=== PATIENT | female | born 1970 | race African-American/Black ===

== ENCOUNTER 2016-11-19 01:02 | Emergency (ER) | payer MEDICAID ==
[~2016-11-19] VITALS: Ht 170.2 cm; Wt 91.0 kg
[~2016-11-19 01:02] MED LIST: LABE100T PO
[2016-11-19] MEDS ORDERED: METHOCARBAMOL 500MG TABLET PO ONE (02:30)
[2016-11-19] MEDS ORDERED: KETOROLAC 60MG/2ML VIAL IM ONE (02:30)
[2016-11-19 02:42] VITALS: BP 141/83
== END 2016-11-19 03:08 | disposition home or self-care (01) ==
LOC: ER 01:04
DX: S16.1XXA Strain of muscle, fascia and tendon at neck level, initial encounter (principal); I10 Essential (primary) hypertension; Z79.899 Other long term (current) drug therapy; F17.200 Nicotine dependence, unspecified, uncomplicated; Y93.89 Activity, other specified; Y99.9 Unspecified external cause status; Y92.89 Other specified places as the place of occurrence of the external cause
CPT/HCPCS: 96372; 99283; J1885

== ENCOUNTER 2017-03-03 21:08 | Emergency (ER) | payer MEDICAID ==
[~2017-03-03] VITALS: Ht 170.2 cm; Wt 83.4 kg
[2017-03-03 22:01] VITALS: BP 130/67
== END 2017-03-04 00:31 | disposition left against medical advice (07) ==
LOC: ER 21:08
DX: M25.512 Pain in left shoulder (principal); M54.2 Cervicalgia; Z53.21 Procedure and treatment not carried out due to patient leaving prior to being seen by health care provider

== ENCOUNTER 2017-06-17 12:47 | Emergency (ER) | payer MEDICAID ==
[~2017-06-17] VITALS: Ht 170.2 cm; Wt 86.0 kg
[2017-06-17 16:09] LABS: BASOPHILS % 0.3 % (0.0-2.0); EOSINOPHILS % 1.2 % (0.0-5.0); HEMATOCRIT. 38.8 % (36.0-48.0); LYMPHOCYTES % 30.4 % (20.0-50.0); MEAN CORPUSCULAR HEMOGLOBIN 31.4 pg (28.0-32.0); MEAN CORPUSCULAR VOLUME 93.8 fL (81.0-99.0); MEAN PLATELET VOLUME 8.3 fl (7.4-10.4); MONOCYTES % 7.3 % (2.0-8.0); NEUTROPHILS % 60.8 % (40.0-76.0); PLATELET 277 x1000/uL (130-400); RED BLOOD CELL COUNT 4.13 mill/uL (4.2-5.4); RED CELL DISTRIBUTION WIDTH 12.8 % (11.6-14.6)
[2017-06-17 16:17] LABS: CHLORIDE 106 mEq/L (98-107)
[2017-06-17 16:22] LABS: CARBON DIOXIDE 26 mEq/L (21-32)
[2017-06-17] MEDS ORDERED: IBUPROFEN 600MG TABLET PO ONE (17:30)
[2017-06-17 17:53] VITALS: BP 108/72
== END 2017-06-17 17:54 | disposition home or self-care (01) ==
LOC: ER 12:55
DX: M79.602 Pain in left arm (principal); I10 Essential (primary) hypertension; F31.9 Bipolar disorder, unspecified; F17.200 Nicotine dependence, unspecified, uncomplicated; Z90.49 Acquired absence of other specified parts of digestive tract
CPT/HCPCS: 36415; 73060; 80048; 80076; 81025; 83690; 85025; 99285

== ENCOUNTER 2020-12-27 14:08 | Emergency (ER) | payer MEDICAID, OTHER ==
[~2020-12-27] VITALS: Ht 165.1 cm; Wt 75.0 kg
[~2020-12-27 14:08] MED LIST changes: -LABE100T PO; +LABE100T5 PO
[2020-12-27 14:13] VITALS: BP 157/106
[2020-12-27] MEDS ORDERED: LORAZEPAM 0.5MG TABLET PO ONE (15:00)
== END 2020-12-27 15:27 | disposition left against medical advice (07) ==
LOC: ER 14:08
DX: S20.219A Contusion of unspecified front wall of thorax, initial encounter (principal); Y04.2XXA Assault by strike against or bumped into by another person, initial encounter; F41.1 Generalized anxiety disorder; R00.0 Tachycardia, unspecified; Y07.499 Other family member, perpetrator of maltreatment and neglect; Y93.89 Activity, other specified; Y92.89 Other specified places as the place of occurrence of the external cause; Z63.79 Other stressful life events affecting family and household
CPT/HCPCS: 93005; 99283

== ENCOUNTER 2021-08-16 09:54 | Inpatient (IN) | payer MEDICAID ==
[~2021-08-16] VITALS: Ht 170.2 cm; Wt 76.7 kg
[2021-08-16] MEDS ORDERED: ONDANSETRON HCL 4MG/2ML INJ IV ONE ×2 (10:30)
[2021-08-16] MEDS ORDERED: MORPHINE SULFATE 4 MG/ML CPJ (NOT FOR IM USE) IV ONE (10:30)
[2021-08-16] MEDS ORDERED: MORPHINE SULFATE 10 MG/ML CPJ IV ONE (10:30)
[2021-08-16 10:55] LABS: HEMATOCRIT. 41.4 % (36.0-48.0); MEAN CORPUSCULAR VOLUME 98.1 fL (81.0-99.0); MEAN PLATELET VOLUME 8.5 fl (7.4-10.4); PLATELET 268 x1000/uL (130-400); RED BLOOD CELL COUNT 4.22 mill/uL (4.2-5.4); RED CELL DISTRIBUTION WIDTH 13.2 % (11.6-14.6)
[2021-08-16 11:13] LABS: CLARITY URINE CLEAR (CLEAR); COLOR URINE YELLOW (YELLOW); KETONES URINE NEGATIVE (NEGATIVE); LEUKOCYTE ESTERASE URINE NEGATIVE (NEGATIVE); NITRITE URINE NEGATIVE (NEGATIVE); OCCULT BLOOD URINE NEGATIVE (NEGATIVE); PROTEIN URINE NEGATIVE (NEGATIVE); SPECIFIC GRAVITY URINE 1.023 (1.005-1.030); UROBILINOGEN URINE 0.2 E.U./dL (0.2-1.0)
[2021-08-16 11:30] LABS: HEMOGLOBIN. 13.6 g/dL (12.0-16.0); MEAN CORPUSCULAR HEMOGLOBIN 32.2 pg (28.0-32.0)
[2021-08-16 11:32] LABS: CHLORIDE 104 mEq/L (98-107); ETHANOL BLOOD < 10 mg/dL
[2021-08-16 12:03] LABS: PROTHROMBIN TIME 10.8 sec (9.6-11.0)
[2021-08-16 12:59] LABS: PLATELET ESTIMATE NORMAL
[2021-08-16] MEDS ORDERED: KETOROLAC 30MG/ML VIAL IV NR (14:30)
[2021-08-16] MEDS ORDERED: DILTIAZEM HCL 5MG/ML 5ML VIAL IV ONE ×2 (18:30→18:42)
[2021-08-16] MEDS ORDERED: SODIUM CHLORIDE 0.9% 1,000 ML IV ONE (18:45)
[2021-08-16] MEDS: HYDROCODONE/ACETAMINOPHEN 10/325MG TABLET PO PRN (22:06)
[2021-08-16] MEDS ORDERED: NALOXONE HCL 0.4 MG/ML 1ML VIAL IV PRN (23:45)
[2021-08-17] VITALS (7 sets, daily range): BP systolic 83–114; BP diastolic 51–81
[2021-08-17] MEDS: ONDANSETRON HCL 4MG/2ML INJ IV PRN (01:19)
[2021-08-17] MEDS: MORPHINE SULFATE 2 MG/ML CPJ (NOT FOR IM USE) IV PRN ×3 (01:24→16:07)
[2021-08-17] MEDS: DEXT 5%/0.45% NACL KCL 20MEQ/L 1,000 ML IV SCH ×3 (01:25→18:21)
[2021-08-17 05:52] LABS: HEMATOCRIT. 41.3 % (36.0-48.0); HEMOGLOBIN. 14.5 g/dL (12.0-16.0); MEAN CORPUSCULAR HEMOGLOBIN 34.4 pg (28.0-32.0); MEAN CORPUSCULAR VOLUME 97.7 fL (81.0-99.0); MEAN PLATELET VOLUME 9.5 fl (7.4-10.4); PLATELET 203 x1000/uL (130-400); RED BLOOD CELL COUNT 4.23 mill/uL (4.2-5.4); RED CELL DISTRIBUTION WIDTH 13.7 % (11.6-14.6)
[2021-08-17] MEDS: METOPROLOL TARTRATE 50MG TABLET PO SCH ×2 (06:22→21:00)
[2021-08-17] MEDS ORDERED: SODIUM CHLORIDE 0.9% 500 ML IV ONE (06:30)
[2021-08-17] MEDS ORDERED: SODIUM CHLORIDE 0.9% 500 ML IV NR (10:30)
[2021-08-17] MEDS ORDERED: HYDROCODONE/ACETAMINOPHEN 5/325MG TABLET PO PRN (13:15)
[2021-08-17] MEDS: FENOFIBRATE NANOCRYSTALLIZED 145MG TABLET PO SCH (16:07)
[2021-08-17 17:04] LABS: PLATELET ESTIMATE NORMAL
[2021-08-17] MEDS: HYDROCODONE/ACETAMINOPHEN 10/325MG TABLET PO PRN (20:39)
[2021-08-17 20:51] LABS: *AMPHETAMINES SCREEN URINE NEGATIVE (NEGATIVE); *BARBITURATES SCREEN URINE NEGATIVE (NEGATIVE); *BENZODIAZEPINES SCREEN URINE NEGATIVE (NEGATIVE); *COCAINE SCREEN URINE NEGATIVE (NEGATIVE); METHADONE URINE SCREEN NEGATIVE (NEGATIVE); OPIATES URINE SCREEN PRESUMTIVE POSITIVE (NEGATIVE)
[2021-08-17 20:52] LABS: CANNABINOID URINE SCREEN NEGATIVE (NEGATIVE); PHENCYCLIDINE URINE SCREEN NEGATIVE (NEGATIVE)
[2021-08-18] VITALS: BP 126/73
[2021-08-18] MEDS: HYDROCODONE/ACETAMINOPHEN 10/325MG TABLET PO PRN ×6 (01:03→21:01)
[2021-08-18] MEDS: DEXT 5%/0.45% NACL KCL 20MEQ/L 1,000 ML IV SCH ×2 (02:42→11:49)
[2021-08-18 04:00] VITALS: BP 104/62
[2021-08-18 06:57] LABS: HEMATOCRIT. 35.8 % (36.0-48.0); HEMOGLOBIN. 12.3 g/dL (12.0-16.0); MEAN CORPUSCULAR HEMOGLOBIN 33.6 pg (28.0-32.0); MEAN CORPUSCULAR VOLUME 97.9 fL (81.0-99.0); MEAN PLATELET VOLUME 10.2 fl (7.4-10.4); PLATELET 125 x1000/uL (130-400); RED BLOOD CELL COUNT 3.66 mill/uL (4.2-5.4); RED CELL DISTRIBUTION WIDTH 13.8 % (11.6-14.6)
[2021-08-18 07:50] LABS: CHLORIDE 102 mEq/L (98-107)
[2021-08-18 08:00] VITALS: BP 112/74
[2021-08-18] MEDS: METOPROLOL TARTRATE 50MG TABLET PO SCH (08:49)
[2021-08-18] MEDS: FENOFIBRATE NANOCRYSTALLIZED 145MG TABLET PO SCH (08:50)
[2021-08-18] MEDS: ACETAMINOPHEN 325MG TABLET PO PRN (08:56)
[2021-08-18 12:00] VITALS: BP 101/64
[2021-08-18 15:13] LABS: PLATELET ESTIMATE SLIGHTLY DECREASED
[2021-08-18 16:00] VITALS: BP 102/64
[2021-08-18] MEDS: ONDANSETRON HCL 4MG/2ML INJ IV PRN (16:13)
[2021-08-18] MEDS ORDERED: FENO145 MT (17:24)
[2021-08-18 20:00] VITALS: BP 106/63
[2021-08-19] VITALS: BP 103/51
[2021-08-19 04:00] VITALS: BP 97/61
[2021-08-19] MEDS: ACETAMINOPHEN 325MG TABLET PO PRN (04:01)
[2021-08-19 08:00] VITALS: BP 109/71
[2021-08-19] MEDS: HYDROCODONE/ACETAMINOPHEN 10/325MG TABLET PO PRN (08:54)
[2021-08-19] MEDS: FENOFIBRATE NANOCRYSTALLIZED 145MG TABLET PO SCH (08:54)
[2021-08-19 11:11] VITALS: BP 109/71
== END 2021-08-19 12:29 | disposition home or self-care (01) | DRG 282 ==
LOC: ER 10:30 → MICUSO 18:32 → EDBEDREQ 18:35 → EDBEDREQSVC 19:34 → EDBEDREQTM 19:34 → 6WST 23:35
PROVIDERS: ADMIT Internal Medicine; ATTEND Internal Medicine
DX: K85.90 Acute pancreatitis without necrosis or infection, unspecified (principal); N17.0 Acute kidney failure with tubular necrosis; I47.1 Supraventricular tachycardia; E87.1 Hypo-osmolality and hyponatremia; E78.1 Pure hyperglyceridemia; D72.825 Bandemia; R74.01 Elevation of levels of liver transaminase levels; Z20.822 Contact with and (suspected) exposure to COVID-19; Z90.49 Acquired absence of other specified parts of digestive tract
CPT/HCPCS: 36415; 74177; 76700; 80048; 80053; 80061; 80305; 80320; 81003; 82150; 83036; 84484; 85025; 87426; 99285; J1885; J2270; J2405; J3490; J7030; J7040; G0480